=== PATIENT | male | born 1990 | race African-American/Black ===

== ENCOUNTER 2018-03-18 10:32 | Emergency (ER) | payer OTHER ==
[2018-03-18 10:39] VITALS: BP 144/80
[2018-03-18] MEDS ORDERED: KETOROLAC TROMETHAMINE 60 MG/2 ML SDV IM ONE (11:04)
[2018-03-18] MEDS ORDERED: CYCLOBENZAPRINE HCL 10 MG TABLET PO ONE (11:04)
--- NOTE | 2018-03-18 11:11 | ER Document Report ---
HPI - HPI Patient complains to provider of: Left back pain Pain Level: 4 Context: Patient is a 28-year-old male presented to the emergency department complaining of lower back pain. 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 States this morning he noticed more pain in his left lower back and took his son's hydrocodone to help with the pain. Patient states last time he was to the emergency room he was given an IM injection and a muscle relaxer which helped him a lot. Patient is requesting the same at this time. Patient is denying any dysuria, urinary retention, loss of bowel or bladder, numbness or tingling in any extremity. Patient's denying any new injuries to the area states he just does a lot of lifting and twisting with his job. Past medical history: Back pain Medications: None Allergies: No Surgical history: None Patient denies cigarette smoking, illicit drug use, EtOH use. - CONSTITUTIONAL Constitutional: DENIES: Fever, Chills - EENT EENT: DENIES: Sore Throat, Ear Pain, Eye problems - NEURO Neurology: DENIES: Headache, Weakness, Vision blurred, Dizzinesss / Vertigo - CARDIOVASCULAR Cardiovascular: DENIES: Chest pain - RESPIRATORY Respiratory: DENIES: Trouble Breathing, Coughing - GASTROINTESTINAL Gastrointestinal: DENIES: Abdominal Pain, Black / Bloody Stools - URINARY Urinary: DENIES: Dysuria, Urgency, Frequency - MUSCULOSKELETAL Musculoskeletal: DENIES: Extremity pain Past Medical History - General Information source: Patient - Social History Smoking Status: Never Smoker Chew tobacco use (# tins/day): No Frequency of alcohol use: None Drug Abuse: None Lives with: Family Family History: Reviewed & Not Pertinent Patient has suicidal ideation: No Patient has homicidal ideation: No Renal/ Medical History: Denies: Hx Peritoneal Dialysis - Immunizations Immunizations up to date: Yes Hx Diphtheria, Pertussis, Tetanus Vaccination: Yes Vertical Provider Document - CONSTITUTIONAL Agree With Documented VS: Yes Notes: GENERAL: Alert, interacts well. No acute distress. HEAD: Normocephalic, atraumatic. EYES: Pupils equal, round, and reactive to light. Extraocular movements intact. ENT: Oral mucosa moist, tongue midline. NECK: Full range of motion. Supple. Trachea midline. LUNGS: Clear to auscultation bilaterally, no wheezes, rales, or rhonchi. No respiratory distress. HEART: Regular rate and rhythm. No murmur ABDOMEN: Soft, non-tender. Non-distended. Bowel sounds present in all 4 quadrants. EXTREMITIES: Moves all 4 extremities spontaneously. No edema, normal radial and dorsalis pedis pulses bilaterally. No cyanosis. 5/5 strength all 4 extremities. BACK: no cervical, thoracic, lumbar midline tenderness. No saddle anesthesia, normal distal neurovascular exam. Tenderness left lumbar paraspinal. Denies pain moving into his buttocks or lower legs. NEUROLOGICAL: Alert and oriented x3. Normal speech. cranial nerves II through XII grossly intact PSYCH: Normal affect, normal mood. SKIN: Warm, dry, normal turgor. No rashes or lesions noted. - INFECTION CONTROL TRAVEL OUTSIDE OF THE [place] IN LAST 30 DAYS: No Course - Re-evaluation Re-evalutation: 03/18/18 11:08 Treated in the emergency room with Toradol, Flexeril, Lidoderm patch. Patient states pain is much improved. Will discharge home with same. Return precautions discussed. Patient continues without numbness or tingling in any extremity, urinary retention, loss of bowel or bladder. - Vital Signs Vital signs: Temp Pulse Resp BP Pulse Ox 97.6 F 56 L 18 144/80 H 100 03/18/18 10:37 03/18/18 10:37 03/18/18 10:37 03/18/18 10:37 03/18/18 10:37 Discharge - Discharge Clinical Impression: Back pain Qualifiers: Back pain location: low back pain Chronicity: chronic Back pain laterality: left Sciatica presence: without sciatica Qualified Code(s): M54.5 - Low back pain; G89.29 - Other chronic pain; G89.29 - Other chronic pain Condition: Stable Disposition: HOME, SELF-CARE Instructions: Warm Packs ([facility]), Low Back Pain ([facility]), Muscle Strain ([facility]), Pain Medication Injection ([facility]) Additional Instructions: As we discussed you have been seen and treated in the emergency room for lower back pain. Please take medications as prescribed. The Lidoderm patch we placed on your back today can be bought [id number]. Even with insurance it is a very expensive prescription to fill. Please make an appointment with your primary care provider in the next 24-48 hours. Please return to the emergency room should you develop numbness or tingling in any extremity, loss of bowel or bladder, urinary retention or any other concerning symptoms. Prescriptions: Ketorolac Tromethamine [Toradol 10 mg Tablet] 10 mg PO Q8HP PRN #24 tablet PRN Reason: Cyclobenzaprine HCl [Flexeril 10 mg Tablet] 10 mg PO TIDP PRN #15 tab PRN Reason:
[2018-03-18] MEDS ORDERED: LIDOCAINE 5% (700 MG) TRANSDERMAL ADH..PATCH TP ONE (11:12)
== END 2018-03-18 11:41 | disposition home or self-care (01) ==
LOC: ER 10:32
DX: G89.29 Other chronic pain (principal); M54.5 Low back pain
CPT/HCPCS: 99283; 96372; J1885

== ENCOUNTER 2018-04-10 20:11 | Emergency (ER) | payer OTHER ==
[2018-04-10 20:18] VITALS: BP 165/103
[2018-04-10] MEDS ORDERED: KETOROLAC TROMETHAMINE 60 MG/2 ML SDV IM ONE (21:59)
--- NOTE | 2018-04-10 22:01 | ER Document Report ---
HPI - HPI Time Seen by Provider: 04/10/18 21:41 Pain Level: 5 Context: Patient is a 28-year-old male that comes to the emergency department for chief complaint of lower back pain that started this morning. He states for the past 2 days he has been working hard at work, lifting a lot of boxes, bending over frequently. He denies any particular instance of impact or injury. He denies numbness, incontinence, fever, history of IV drug abuse. He states he has had frequent lower back pain. He states that last time which was a month ago he was seen, treated with a shot of medications which resolved his symptoms. He denies any daily medications or medical history otherwise. Past Medical History - General Information source: Patient - Social History Smoking Status: Never Smoker Chew tobacco use (# tins/day): No Frequency of alcohol use: None Drug Abuse: None Lives with: Family Family History: Reviewed & Not Pertinent Patient has suicidal ideation: No Patient has homicidal ideation: No Renal/ Medical History: Denies: Hx Peritoneal Dialysis Surgical Hx: Negative - Immunizations Immunizations up to date: Yes Hx Diphtheria, Pertussis, Tetanus Vaccination: Yes Vertical Provider Document - CONSTITUTIONAL General Appearance: WD/WN, No Apparent Distress, Thin - INFECTION CONTROL TRAVEL OUTSIDE OF THE [place] IN LAST 30 DAYS: No - HEENT HEENT: Atraumatic, Normocephalic - NECK Neck: Normal Inspection - RESPIRATORY Respiratory: Breath Sounds Normal, No Respiratory Distress - CARDIOVASCULAR Cardiovascular: Regular Rate, Regular Rhythm - GI/ABDOMEN Gastrointestinal: Abdomen Soft, Abdomen Non-Tender - BACK Back: negative: Normal Inspection - Tenderness over the left paralumbar musculature. No midline tenderness, no saddle anesthesia, no signs of trauma. Normal upper and lower extremity range of motion, normal strength, normal distal neurovascular exam. - MUSCULOSKELETAL/EXTREMETIES Musculoskeletal/Extremeties: MAEW, FROM, Non-Tender - NEURO Level of Consciousness: Awake, Alert, Appropriate - DERM Integumentary: Warm, Dry, No Rash Course - Re-evaluation Re-evalutation: There is point tenderness over the left lateral lumbar musculature, negative straight leg raise, negative axial loading, no midline tenderness, no fever, patient ambulates without difficulty. Low suspicion of spinal cord compression , cauda equina, epidural abscess. Treating symptomatically, provide with work- release, discussed follow-up and return precautions. Patient states understanding and agreement. - Vital Signs Vital signs: Temp Pulse Resp BP Pulse Ox 98.0 F 62 16 165/103 H 100 04/10/18 20:15 04/10/18 20:15 04/10/18 20:15 04/10/18 20:15 04/10/18 20:15 Discharge - Discharge Clinical Impression: Lower back pain Qualifiers: Chronicity: acute Back pain laterality: left Sciatica presence: without sciatica Qualified Code(s): M54.5 - Low back pain Condition: Stable Disposition: HOME, SELF-CARE Additional Instructions: Your examination is most consistent with muscular strain and spasm. No additional concerning findings noted at this time. Take prescribed medications, apply heat to your lower back, stay hydrated, rest. Avoid lifting/twisting until symptoms resolve. Follow-up with primary care. Return for any concerning symptoms including severe pain, fever, numbness, inability to urinate, incontinence, or any other concerning symptoms. Prescriptions: Methocarbamol [Robaxin 750 mg Tablet] 750 mg PO Q6 #20 tablet Naproxen 500 mg PO BID PRN #20 tablet PRN Reason: Forms: Return to Work, Elevated Blood Pressure Referrals: [facility] [Primary Care Provider] - Follow up as needed
== END 2018-04-10 22:28 | disposition home or self-care (01) ==
LOC: ER 20:11
DX: M54.5 Low back pain (principal)
CPT/HCPCS: 99283; 96372; J1885

== ENCOUNTER 2018-06-06 10:37 | Emergency (ER) | payer OTHER ==
[2018-06-06] MEDS ORDERED: KETOROLAC TROMETHAMINE INJ/PF 30 MG/1 ML SDV IV ONE (11:09)
[2018-06-06] MEDS ORDERED: ONDANSETRON 4 MG TAB.RAPDIS PO ONE (11:10)
--- NOTE | 2018-06-06 11:16 | ER Document Report ---
ED Medical Screen (RME) - General Chief Complaint: Abdominal Pain Stated Complaint: ABDOMINAL PAIN Time Seen by Provider: 06/06/18 11:02 Primary Care Provider: SHADI ZEPEDA [Primary Care Provider] - Follow up as needed Information source: Patient Notes: 28-year-old male presents emergency department with complaints of lower abdominal / suprapubic pain that started last night. He describes it as a pressure/stabbing sensation. No radiation. No alleviating or exacerbating factors. No testicular pain. No dysuria, hematuria, penile discharge. No trauma or injury. Patient is having some nausea but denies any vomiting. I have greeted and performed a rapid initial assessment of this patient. A comprehensive ED assessment and evaluation of the patient, analysis of test results and completion of the medical decision making process will be conducted by additional ED providers. PHYSICAL EXAMINATION: GENERAL: Patient in pain HEAD: Atraumatic, normocephalic. EYES: Pupils equal round extraocular movements intact, conjunctiva are normal. ENT: Nares patent NECK: Normal range of motion LUNGS: No respiratory distress Musculoskeletal: Normal range of motion NEUROLOGICAL: Normal speech, normal gait. PSYCH: Normal mood, normal affect. SKIN: Warm, Dry, normal turgor, no rashes or lesions noted. TRAVEL OUTSIDE OF THE [place] IN LAST 30 DAYS: No - Related Data Allergies/Adverse Reactions: No Known Allergies Allergy (Verified 06/06/18 10:45) Past Medical History Renal/ Medical History: Denies: Hx Peritoneal Dialysis - Immunizations Immunizations up to date: Yes Hx Diphtheria, Pertussis, Tetanus Vaccination: Yes Physical Exam - Vital signs Vitals: Temp Pulse Resp BP Pulse Ox 98.6 F 61 20 172/109 H 100 06/06/18 11:06/06/18 11:06/06/18 11:06/06/18 11:06/06/18 11:00 Course - Vital Signs Vital signs: Temp Pulse Resp BP Pulse Ox 98.6 F 61 20 172/109 H 100 06/06/18 11:00 06/06/18 11:06/06/18 11:06/06/18 11:00 06/06/18 11:00 Doctor's Discharge - Discharge Referrals: DUANE,SHADI [Primary Care Provider] - Follow up as needed
[2018-06-06 11:48] LABS: APPEARANCE,URINE SLIGHTLY-CLOUDY; BILIRUBIN,URINE NEGATIVE (NEGATIVE); COLOR,URINE STRAW; GLUCOSE, URINE NEGATIVE (NEGATIVE); KETONES,URINE NEGATIVE (NEGATIVE); LEUKOCYTE ESTERASE,URINE NEGATIVE (NEGATIVE); NITRITE,URINE NEGATIVE (NEGATIVE); PROTEIN,URINE NEGATIVE (NEGATIVE); URINE SPECIFIC GRAVITY 1.014; UROBILINOGEN,URINE NEGATIVE mg/dL (<2.0)
[2018-06-06 11:48] LABS: ABSOLUTE LYMPHOCYTES (AUTO) 1.1 10^3/uL (0.5-4.7); ABSOLUTE MONOCYTES (AUTO) 0.5 10^3/uL (0.1-1.4); ABSOLUTE NEUT (AUTO) 5.7 10^3/uL (1.7-8.2); BASOPHILS % (AUTO) 0.2 % (0-2); EOSINOPHILS % (AUTO) 0.1 % (0-6); HEMATOCRIT 45.7 % (37.9-51.0); HEMOGLOBIN 15.8 g/dL (13.5-17.0); LYMPHOCYTES % (AUTO) 15.4 % (13-45); MEAN CORPUSCULAR HEMOGLOBIN 32.6 pg (27.0-33.4); MEAN CORPUSCULAR HGB CONC 34.5 g/dL (32.0-36.0); MEAN CORPUSCULAR VOLUME 95 fl (80-97); PLATELET COUNT 297 10^3/uL (150-450); RED BLOOD COUNT 4.84 10^6/uL (4.35-5.55); SEGMENTED NEUTROPHILS % (AUTO) 77.3 % (42-78); TOTAL CELLS COUNTED % (AUTO) 100 %; WHITE BLOOD COUNT 7.4 10^3/uL (4.0-10.5)
--- NOTE | 2018-06-06 11:54 | ER Document Report ---
ED GI/ - General Chief Complaint: Abdominal Pain Stated Complaint: ABDOMINAL PAIN Time Seen by Provider: 06/06/18 11:02 Primary Care Provider: ERNESTINA BARNHART MD [NO LOCAL MD] - Follow up as needed [facility] [Primary Care [facility]] - Follow up as needed TRAVEL OUTSIDE OF THE [place] IN LAST 30 DAYS: No - HPI Patient complains to provider of: Abdominal pain Onset: Yesterday Timing/Duration: Gradual, Persistent Quality of pain: Fullness, Pressure, Sharp, Stabbing Severity at maximum: Severe Severity in ED: Severe Pain Level: 5 Location: Suprapubic, Pelvis Associated symptoms: Nausea Notes: 06/06/18 11:52 Patient is a 28-year-old male presenting to the emergency room complaining of lower abdominal pain/pressure, started yesterday evening, states he was able to sleep through the night but when he woke up the pain started immediately, he reports associated nausea, denies diarrhea or vomiting, no fever, no dysuria or hematuria, he denies having a bowel movement today, he denies pain in his penis or testicles, no penile discharge, denies a history of similar symptoms previously - Related Data Allergies/Adverse Reactions: No Known Allergies Allergy (Verified 06/06/18 10:45) Past Medical History - General Information source: Patient - Social History Smoking Status: Unknown if Ever Smoked Family History: Reviewed & Not Pertinent Patient has suicidal ideation: No Patient has homicidal ideation: No Renal/ Medical History: Denies: Hx Peritoneal Dialysis - Immunizations Immunizations up to date: Yes Hx Diphtheria, Pertussis, Tetanus Vaccination: Yes Review of Systems - Review of Systems Constitutional: No symptoms reported EENT: No symptoms reported Cardiovascular: No symptoms reported Respiratory: No symptoms reported Gastrointestinal: See HPI Genitourinary: See HPI Male Genitourinary: No symptoms reported Musculoskeletal: No symptoms reported Skin: No symptoms reported Hematologic/Lymphatic: No symptoms reported Neurological/Psychological: No symptoms reported -: Yes All other systems reviewed and negative Physical Exam - Vital signs Vitals: Temp Pulse Resp BP Pulse Ox 98.6 F 61 20 172/109 H 100 06/06/18 11:00 06/06/18 11:00 06/06/18 11:00 06/06/18 11:00 06/06/18 11:00 Interpretation: Normal - General General appearance: Appears well, Alert - HEENT Head: Normocephalic, Atraumatic Eyes: Normal Pupils: PERRL - Respiratory Respiratory status: No respiratory distress Chest status: Nontender Breath sounds: Normal Chest palpation: Normal - Cardiovascular Rhythm: Regular Heart sounds: Normal auscultation Murmur: No - Abdominal Inspection: Normal Distension: No distension Bowel sounds: Normal Tenderness: Tender - Across the lower abdomen and suprapubic area Organomegaly: No organomegaly - Back Back: Normal, Nontender - Extremities General upper extremity: Normal inspection, Nontender, Normal color, Normal ROM, Normal temperature General lower extremity: Normal inspection, Nontender, Normal color, Normal ROM, Normal temperature, Normal weight bearing. No: Harrison's sign - Neurological Neuro grossly intact: Yes Cognition: Normal Orientation: AAOx4 [place] Coma Scale Eye Opening: Spontaneous [place] Coma Scale Verbal: Oriented [place] Coma Scale Motor: Obeys Commands [place] Coma Scale Total: 15 Speech: Normal Motor strength normal: LUE, RUE, LLE, RLE Sensory: Normal - Psychological Associated symptoms: Normal affect, Normal mood - Skin Skin Temperature: Warm Skin Moisture: Dry Skin Color: Normal Course - Re-evaluation Re-evalutation: 06/06/18 15:34 Lab and imaging findings discussed with patient at bedside which are consistent with a 6 mm kidney stone in his right UVJ, patient was advised that the side stone may or may not pass on its own with the assistance of medications, he was advised to follow-up with his primary care provider and a urologist, return if symptoms worsen, patient provided with multiple prescriptions for symptomatic relief, patient acknowledges understanding and agreement with this plan - Vital Signs Vital signs: Temp Pulse Resp BP Pulse Ox 97.9 F 55 L 18 151/91 H 100 06/06/18 13:55 06/06/18 13:55 06/06/18 13:55 06/06/18 13:55 06/06/18 13:55 - Laboratory Result Diagrams: 06/06/18 11:27 06/06/18 12:03 Laboratory results interpreted by me: 06/06/18 10:58 Urine Blood MODERATE H - Diagnostic Test Radiology reviewed: Image reviewed, Reports reviewed Discharge - Discharge Clinical Impression: Kidney stone on left side Condition: Stable Disposition: HOME, SELF-CARE Instructions: Kidney Stone ([facility]) Additional Instructions: Follow up with your primary care provider and a urologist in one to 2 days. Return to the emergency room immediately if symptoms worsen or any additional concerns. Prescriptions: Ondansetron [Zofran Odt 4 mg Tablet] 1 - 2 tab PO Q4H #10 tab.rapdis Oxycodone HCl/Acetaminophen [Percocet 5-325 mg Tablet] 1 - 2 tab PO ASDIR PRN #20 tablet PRN Reason: Tamsulosin HCl [Flomax 0.4 mg Cap.sr] 0.4 mg PO DAILY #7 cap.sr.24h Forms: Return to Work Referrals: [facility] [Primary [facility]] - Follow up as needed ERNESTINA BARNHART MD [NO LOCAL MD] - Follow up as needed
[2018-06-06 12:38] LABS: ALANINE AMINOTRANSFERASE 29 U/L (21-72); ALBUMIN 4.6 g/dL (3.5-5.0); ALKALINE PHOSPHATASE 69 U/L (38-126); ANION GAP 9 (5-19); ASPARTATE AMINO TRANSFERASE 32 U/L (17-59); BILIRUBIN,DIRECT 0.3 mg/dL (0.0-0.4); BILIRUBIN,TOTAL 0.7 mg/dL (0.2-1.3); BLOOD UREA NITROGEN 16 mg/dL (7-20); CALCIUM 9.5 mg/dL (8.4-10.2); CARBON DIOXIDE 26 mmol/L (22-30); CHLORIDE 107 mmol/L (98-107); GLUCOSE 97 mg/dL (75-110); SODIUM 141.8 mmol/L (137-145); TOTAL PROTEIN 7.4 g/dL (6.3-8.2)
--- NOTE | 2018-06-06 12:56 | RADIOLOGY REPORT (SQ) ---
EXAM DESCRIPTION: CT LTD RENAL STONE PROTOCOL ON COMPLETED DATE/TIME: 06/06/2018 12:43 pm REASON FOR STUDY: flank pain COMPARISON: None. TECHNIQUE: CT scan of the abdomen and pelvis performed without intravenous or oral contrast. Images reviewed with lung, soft tissue, and bone windows. Reconstructed coronal and sagittal MPR images revi ewed. All images stored on PACS. All CT scanners at this facility use dose modulation, iterative reconstruction, and/or weight based d osing when appropriate to reduce radiation dose to as low as reasonably achievable (ALARA). [facility]: Dose Right [facility]: CareDose [facility]: Dose Right [facility]: Teradose 4D [facility]: Smart ArriveBefore RADIATION DOSE: CT Rad equipment meets quality standard of care and radiation dose reduction techniq ues were employed. CTDIvol: 8.1 mGy. DLP: 474 mGy-cm.mGy. LIMITATIONS: None. FINDINGS: LOWER CHEST: No significant findings. No nodules or infiltrates. NON-CONTRASTED LIVER, SPLEEN, ADRENALS: Evaluation limited by lack of IV contrast. No identified sign ificant masses. PANCREAS: No masses. No peripancreatic inflammatory changes. GALLBLADDER: No identified stones by CT criteria. No inflammatory changes to suggest cholecystitis. RIGHT KIDNEY AND URETER: No suspicious masses. Assessment limited by lack of IV contrast. There are couple of tiny intrarenal calculi. No hydronephrosis or hydroureter. LEFT KIDNEY AND URETER: No suspicious masses. Assessment limited by lack of IV contrast. There appe ars to be a 6 mm distal ureteral calculus. A couple small nonobstructing intrarenal calculi are pres ent. Mild hydronephrosis and hydroureter. AORTA AND RETROPERITONEUM: No aneurysm. No retroperitoneal masses or adenopathy. BOWEL AND PERITONEAL CAVITY: No obvious masses or inflammatory changes. No free fluid. APPENDIX: Not identified. PELVIS, BLADDER, AND ABDOMINAL WALL:No abnormal masses. No free fluid. Bladder normal. BONES: No significant findings. OTHER: No other significant finding. IMPRESSION: There is left hydronephrosis secondary to a 6 mm distal ureteral calculus. Tiny nonobst ructing intrarenal calculi are present bilaterally. COMMENT: Quality ID # [id number]: Final reports with documentation of one or more dose reduction techniques (e.g., Automated exposure control, adjustment of the mA and/or kV according to patient size, use of iterative reconstruction technique) TECHNICAL DOCUMENTATION: JOB ID: [id number] [employer]- All Rights Reserved Reading location - IP/workstation name: [email or web address]
[2018-06-06] MEDS ORDERED: HYDROMORPHONE HCL INJ/PF 2 MG/ML AMPULE IV ONE (13:03)
[2018-06-06] MEDS ORDERED: ONDANSETRON HCL INJ/PF 4 MG/2 ML SDV IV ONE (13:04)
[2018-06-06] MEDS ORDERED: TAMSULOSIN HCL 0.4 MG CAP.SR.24H PO ONE (13:04)
[2018-06-06 13:55] VITALS: BP 151/91
== END 2018-06-06 14:02 | disposition home or self-care (01) ==
LOC: ER 10:37
DX: N13.2 Hydronephrosis with renal and ureteral calculous obstruction (principal); R10.30 Lower abdominal pain, unspecified; R11.0 Nausea
CPT/HCPCS: 99284; 96374; 96375; 36415; 85025; 80053; 81001; 76380; S0119; J1885; J1170; J2405

== ENCOUNTER 2018-10-29 02:22 | Emergency (ER) | payer OTHER ==
[2018-10-29] MEDS ORDERED: MORPHINE SULFATE 10 MG/ML INJ IV PRN (02:36)
[2018-10-29] MEDS ORDERED: KETOROLAC TROMETHAMINE INJ/PF 30 MG/1 ML SDV IV ONE (02:36)
[2018-10-29] MEDS ORDERED: ONDANSETRON HCL INJ/PF 4 MG/2 ML SDV IV ONE (02:37)
[2018-10-29] MEDS ORDERED: NORMAL SALINE 1000 ML 1,000 ML IV ONE (02:37)
[2018-10-29 03:42] LABS: ANION GAP 10 (5-19); BLOOD UREA NITROGEN 16 mg/dL (7-20); CALCIUM 9.8 mg/dL (8.4-10.2); CARBON DIOXIDE 25 mmol/L (22-30); CHLORIDE 106 mmol/L (98-107); GLUCOSE 100 mg/dL (75-110); POTASSIUM 4.1 mmol/L (3.6-5.0); SODIUM 140.6 mmol/L (137-145)
[2018-10-29] MEDS ORDERED: ONDANSETRON ODT 4 MG TAB (6 TAB/ER DISP) PO PRN (04:07)
[2018-10-29] MEDS ORDERED: HYDROCODONE/ACETAMINOPHEN 5-325 MG (6 TAB/ER DISP) PO PRN (04:07)
[2018-10-29] MEDS ORDERED: TAMSULOSIN HCL 0.4 MG CAP.SR.24H PO ONE (04:07)
--- NOTE | 2018-10-29 04:11 | ER Document Report ---
ED General - General Chief Complaint: Possible Kidney Stone Stated Complaint: FLANK PAIN Time Seen by Provider: 10/29/18 02:36 Primary Care Provider: SHADI ZEPEDA [Primary Care Provider] - Follow up as needed Notes: Patient is a 28-year-old male without chronic medical problems, does have a history of kidney stones although has never required surgical intervention who presents with approximately 30 minutes of severe pain to his right flank. Patient describes it as a severe, throbbing, constant pain radiating down to his lower abdomen and right testicle. States this feels identical to prior episodes of kidney stones that he has had in the past. Nothing seems to improve or worsen the pain. Notes associated nausea and vomiting. No fever or constitutional symptoms. Has not seen his primary care physician regarding today's concerns. TRAVEL OUTSIDE OF THE [place] IN LAST 30 DAYS: No - Related Data Allergies/Adverse Reactions: No Known Allergies Allergy (Verified 06/06/18 10:45) Past Medical History - General Information source: Patient - Social History Smoking Status: Never Smoker Frequency of alcohol use: None Drug Abuse: None Lives with: Spouse/Significant other Family History: Reviewed & Not Pertinent Patient has suicidal ideation: No Patient has homicidal ideation: No Renal/ Medical History: Reports: Hx Kidney Stones. Denies: Hx Peritoneal Tanisha lysis - Immunizations Immunizations up to date: Yes Hx Diphtheria, Pertussis, Tetanus Vaccination: Yes Review of Systems - Review of Systems Notes: Constitutional: Negative for fever. HENT: Negative for sore throat. Eyes: Negative for visual changes. Cardiovascular: Negative for chest pain. Respiratory: Negative for shortness of breath. Gastrointestinal: Positive for right flank pain, nausea and vomiting Genitourinary: Negative for dysuria. Musculoskeletal: Negative for back pain. Skin: Negative for rash. Neurological: Negative for headaches, weakness or numbness. 10 point ROS negative except as marked above and in HPI. Physical Exam - Vital signs Vitals: Temp Pulse Resp BP Pulse Ox 97.8 F 81 20 136/95 H 100 10/29/18 02:28 10/29/18 02:28 10/29/18 02:28 10/29/18 02:28 10/29/18 02:28 Interpretation: Normal Notes: PHYSICAL EXAMINATION: GENERAL: Appears uncomfortable but in no acute distress HEAD: Atraumatic, normocephalic. EYES: Pupils equal round and reactive to light, extraocular movements intact, sclera anicteric, conjunctiva are normal. ENT: nares patent, oropharynx clear without exudates. Moist mucous membranes. NECK: Normal range of motion, supple without lymphadenopathy LUNGS: Breath sounds clear to auscultation bilaterally and equal. No wheezes rales or rhonchi. HEART: Regular rate and rhythm without murmurs ABDOMEN: Soft, mild right CVA tenderness to palpation, nontender, normoactive bowel sounds. No guarding, no rebound. No masses appreciated. EXTREMITIES: Normal range of motion, no pitting or edema. No cyanosis. NEUROLOGICAL: No focal neurological deficits. Moves all extremities spontaneously and on command. PSYCH: Normal mood, normal affect. SKIN: Warm, Dry, normal turgor, no rashes or lesions noted. Course - Re-evaluation Re-evalutation: 10/29/18 04:10 Presents with findings consistent with acute nephrolithiasis. CT deferred per ACEP guidelines. laboratory otherwise unremarkable. Pain was able to be controlled here in the emergency department. Patient is tolerating oral intake. Clinical history is not consistent with an acute abdominal aneurysm or dissection, [place], or pulmonary embolus. Urinalysis does not show findings consistent with an infected stone. Vitals have remained within normal limits. Patient will be discharged with recommendations to follow-up with urology, pain medications, and return precautions. They are in agreement with this plan and verbalized indications return to emergency department. - Vital Signs Vital signs: Temp Pulse Resp BP Pulse Ox 97.8 F 81 20 136/95 H 100 10/29/18 02:28 10/29/18 02:28 10/29/18 02:28 10/29/18 02:28 10/29/18 02:28 - Laboratory Result Diagrams: 10/29/18 03:05 Discharge - Discharge Clinical Impression: Right kidney stone, Right flank pain Nausea and vomiting Qualifiers: Vomiting type: unspecified Vomiting Intractability: non-intractable Qualified Code(s): R11.2 - Nausea with vomiting, unspecified Condition: Good Disposition: HOME, SELF-CARE Additional Instructions: Your symptoms should improve over the course of the next one week. If you continue to have pain for greater than one week or your pain is not controlled with the pain medications that you have been sent home with you need to return to the emergency department. Please also return if you develop fever, persistent vomiting, or any other symptoms that are concerning to you. You should take ibuprofen 600 mg every 6 hours and use the oral [place] as prescribed only for pain not controlled by ibuprofen. You are also been sent home with a medication called Flomax to help pass the stone. You've been given Zofran to assist with nausea. Please follow-up with urology in the next 2-3 days. Prescriptions: Tamsulosin HCl [Flomax 0.4 mg Cap.sr] 0.4 mg PO DAILY #7 cap.sr.24h Referrals: [facility] [Primary Care Provider] - Follow up in 3-5 days
[2018-10-29 05:03] LABS: APPEARANCE,URINE CLOUDY; BILIRUBIN,URINE NEGATIVE (NEGATIVE); COLOR,URINE YELLOW; GLUCOSE, URINE NEGATIVE (NEGATIVE); KETONES,URINE NEGATIVE (NEGATIVE); LEUKOCYTE ESTERASE,URINE NEGATIVE (NEGATIVE); NITRITE,URINE NEGATIVE (NEGATIVE); PROTEIN,URINE 30 mg/dL (NEGATIVE); UROBILINOGEN,URINE NEGATIVE mg/dL (<2.0)
[2018-10-29 05:20] VITALS: BP 135/69
== END 2018-10-29 05:20 | disposition home or self-care (01) ==
LOC: ER 02:22
DX: N20.0 Calculus of kidney (principal); R10.9 Unspecified abdominal pain; N50.811 Right testicular pain; R11.2 Nausea with vomiting, unspecified
CPT/HCPCS: 99284; 96361; 96374; 96375; 36415; 80048; 81001; J1885; J2270; J2405; J7030

== ENCOUNTER 2018-10-29 05:52 | Emergency (ER) | payer OTHER ==
[2018-10-29] MEDS ORDERED: KETOROLAC TROMETHAMINE INJ/PF 30 MG/1 ML SDV IV ONE (06:33)
[2018-10-29] MEDS ORDERED: MORPHINE SULFATE 10 MG/ML INJ IV ONE (06:33)
[2018-10-29] MEDS ORDERED: NORMAL SALINE 1000 ML 1,000 ML IV ONE ×2 (06:33→07:44)
[2018-10-29] MEDS ORDERED: ONDANSETRON HCL INJ/PF 4 MG/2 ML SDV IV ONE (06:33)
[2018-10-29 07:01] LABS: ABSOLUTE LYMPHOCYTES (AUTO) 1.7 10^3/uL (0.5-4.7); ABSOLUTE MONOCYTES (AUTO) 0.3 10^3/uL (0.1-1.4); ABSOLUTE NEUT (AUTO) 3.5 10^3/uL (1.7-8.2); BASOPHILS % (AUTO) 0.3 % (0-2); EOSINOPHILS % (AUTO) 0.5 % (0-6); HEMATOCRIT 43.5 % (37.9-51.0); HEMOGLOBIN 14.9 g/dL (13.5-17.0); LYMPHOCYTES % (AUTO) 30.1 % (13-45); MEAN CORPUSCULAR HEMOGLOBIN 32.6 pg (27.0-33.4); MEAN CORPUSCULAR HGB CONC 34.3 g/dL (32.0-36.0); MEAN CORPUSCULAR VOLUME 95 fl (80-97); MONOCYTES % (AUTO) 5.9 % (3-13); PLATELET COUNT 251 10^3/uL (150-450); RED BLOOD COUNT 4.58 10^6/uL (4.35-5.55); RED CELL DISTRIBUTION WIDTH 14.2 % (11.5-14.0); SEGMENTED NEUTROPHILS % (AUTO) 63.2 % (42-78); TOTAL CELLS COUNTED % (AUTO) 100 %; WHITE BLOOD COUNT 5.6 10^3/uL (4.0-10.5)
[2018-10-29 07:25] LABS: APPEARANCE,URINE CLOUDY; BILIRUBIN,URINE NEGATIVE (NEGATIVE); COLOR,URINE YELLOW; GLUCOSE, URINE NEGATIVE (NEGATIVE); KETONES,URINE NEGATIVE (NEGATIVE); LEUKOCYTE ESTERASE,URINE NEGATIVE (NEGATIVE); NITRITE,URINE NEGATIVE (NEGATIVE); PROTEIN,URINE 30 mg/dL (NEGATIVE); URINE SPECIFIC GRAVITY 1.025; UROBILINOGEN,URINE NEGATIVE mg/dL (<2.0)
[2018-10-29 07:59] LABS: ALANINE AMINOTRANSFERASE 31 U/L (21-72); ALBUMIN 3.5 g/dL (3.5-5.0); ALKALINE PHOSPHATASE 56 U/L (38-126); ANION GAP 5 (5-19); ASPARTATE AMINO TRANSFERASE 52 U/L (17-59); BILIRUBIN,DIRECT 0.1 mg/dL (0.0-0.4); BILIRUBIN,TOTAL 0.5 mg/dL (0.2-1.3); BLOOD UREA NITROGEN 14 mg/dL (7-20); CALCIUM 8.7 mg/dL (8.4-10.2); CARBON DIOXIDE 26 mmol/L (22-30); CHLORIDE 109 mmol/L (98-107); GLUCOSE 100 mg/dL (75-110); POTASSIUM 4.7 mmol/L (3.6-5.0); SODIUM 139.8 mmol/L (137-145); TOTAL PROTEIN 6.2 g/dL (6.3-8.2)
[2018-10-29 10:04] VITALS: BP 145/70
--- NOTE | 2018-10-29 14:24 | ER Document Report ---
Entered by DENNIS JIM SCRIBE 10/29/18 0634 Acting as scribe for:CORINNE CASILLAS MD ED General - General Chief Complaint: Possible Kidney Stone Stated Complaint: FLANK PAIN Time Seen by Provider: 10/29/18 06:21 Primary Care Provider: [facility] [Provider Group] - Follow up as needed [facility] - Follow up as needed Notes: Patient is a 28 year old male with pertinent history of kidney stones presenting to the emergency department complaining of right sided flank pain. Patient states that he began experiencing pain x2 days ago and it has been constant but bearable. Patient states that he woke up in extreme pain early this morning and he then proceeded to come to the emergency department. Patient was discharged at 05:55 this morning and given IV Toradol and morphine, he states he left feeling fine after that. He then returned to the emergency department shortly after at 06:07 because the pain progressed immensely. TRAVEL OUTSIDE OF THE [place] IN LAST 30 DAYS: No - Related Data Allergies/Adverse Reactions: No Known Allergies Allergy (Verified 10/29/18 06:10) Past Medical History - General Information source: Patient - Social History Smoking Status: Never Smoker Cigarette use (# per day): No Chew tobacco use (# tins/day): No Frequency of alcohol use: None Drug Abuse: None Lives with: Spouse/Significant other Family History: Reviewed & Not Pertinent Patient has suicidal ideation: No Patient has homicidal ideation: No Renal/ Medical History: Reports: Hx Kidney Stones - Immunizations Immunizations up to date: Yes Hx Diphtheria, Pertussis, Tetanus Vaccination: Yes Review of Systems - Review of Systems Constitutional: No symptoms reported EENT: No symptoms reported Cardiovascular: No symptoms reported Respiratory: No symptoms reported Gastrointestinal: No symptoms reported Genitourinary: Flank pain - Right sided Male Genitourinary: No symptoms reported Musculoskeletal: No symptoms reported Skin: No symptoms reported Hematologic/Lymphatic: No symptoms reported Neurological/Psychological: No symptoms reported -: Yes All other systems reviewed and negative Physical Exam - Vital signs Vitals: Temp Pulse Resp BP Pulse Ox 98 F 59 L 16 152/94 H 100 10/29/18 05:53 10/29/18 05:53 10/29/18 05:53 10/29/18 05:53 10/29/18 05:53 - Notes Notes: Physical Exam: General: Alert, appears well. HEENT: Normocephalic. Atraumatic. PERRL. Extraocular movements intact. Oropharynx clear. Neck: Supple. Non-tender. Respiratory: No respiratory distress. Clear and equal breath sounds bilaterally. Cardiovascular: Regular rate and rhythm. Abdominal: Right lower quadrant tenderness to palpation. Percussion on the left side of abdomen causes right sided abdominal pain. No distension. Normal Bowel Sounds. Back: Non-tender. No deformity or step off. Extremities: Moves all four extremities. Upper extremities: Normal inspection. Normal ROM. Lower extremities: Normal inspection. No edema. Normal ROM. Neurological: Normal cognition. AAOx4. Normal speech. Psychological: Normal affect. Normal Mood. Skin: Warm. Dry. Normal color. Course - Re-evaluation Re-evalutation: 10/29/18 09:19 Patient is had 2 L of IV fluids at this point. He remains resting comfortably and believes that he will be okay at home taking pain medications and nausea medicine. - Vital Signs Vital signs: Temp Pulse Resp BP Pulse Ox 97.5 F 52 L 18 145/70 H 98 10/29/18 09:40 10/29/18 09:40 10/29/18 09:40 10/29/18 09:40 10/29/18 09:40 - Laboratory Result Diagrams: 10/29/18 06:47 10/29/18 07:25 Laboratory results interpreted by me: 10/29/18 10/29/18 10/29/18 06:47 07:00 07:25 RDW 14.2 H Chloride 109 H Total Protein 6.2 L Urine Protein 30 H Urine Blood LARGE H Discharge - Discharge Clinical Impression: Right flank pain Condition: Stable Disposition: HOME, SELF-CARE Additional Instructions: Kidney Stone You are passing a kidney stone. These stones are usually due to increased calcium or uric acid concentrations in your urine. Stones within the kidney itself are not painful. The pain occurs as the stone leaves the kidney to pass down the long tube, called the ureter, leading to the bladder. If the stone is small, it will usually pass by itself. Most patients can pass the stone at home. You will usually receive medications for pain, nausea or vomiting, and sometimes a medication to assist in passing the kidney stone. However, if the pain is very severe or if vomiting prevents you from taking oral pain medications, you may need to return for further treatment. Drink three or four quarts of fluids per day. You will be given pain medication (if needed) and urine strainers. Strain all your urine to see if the stone passes. If your doctor has asked you to bring the stone in for analysis, return with the stone once it has passed. Return if pain or vomiting become severe, if you develop a high fever, if you are unable to pass your urine, or if other unusual symptoms occur. Drink plenty of fluids and strain your urine. Take ibuprofen 600 mg every 6 hours. Take the pain medications as prescribed if needed. Take the nausea medicine as prescribed if needed. Be sure to take the Flomax that was prescribed earlier today at every day. Follow-up with your doctor, or a local urologist if not improving. RETURN TO THE EMERGENCY ROOM IF ANY NEW OR WORSENING SYMPTOMS. Prescriptions: Ondansetron [Zofran Odt 4 mg Tablet] 1 - 2 tab PO Q4H #10 tab.rapdis Oxycodone HCl/Acetaminophen [Percocet 5-325 mg Tablet] 1 tab PO ASDIR PRN #15 tablet PRN Reason: Referrals: [facility] [[facility]] - Follow up as needed [facility] [Provider Group] - Follow up as needed Scribe Attestation: 10/29/18 07:24 I personally performed the services described in the documentation, reviewed and edited the documentation which was dictated to the scribe in my presence, and it accurately records my words and actions. I personally performed the services described in the documentation, reviewed and edited the documentation which was dictated to the scribe in my presence, and it accurately records my words and actions.
== END 2018-10-29 10:04 | disposition home or self-care (01) ==
LOC: ER 05:52
DX: R10.9 Unspecified abdominal pain (principal); R10.813 Right lower quadrant abdominal tenderness; Z87.442 Personal history of urinary calculi
CPT/HCPCS: 99284; 96361; 96374; 96375; 36415; 85025; 81001; J1885; J2270; J2405; J7030

== ENCOUNTER 2019-07-31 21:23 | Emergency (ER) | payer OTHER ==
[2019-07-31] MEDS ORDERED: KETOROLAC TROMETHAMINE INJ/PF 30 MG/1 ML SDV IV ONE (21:35)
[2019-07-31] MEDS ORDERED: ONDANSETRON HCL INJ/PF 4 MG/2 ML SDV IV ONE (21:35)
[2019-07-31] MEDS ORDERED: NORMAL SALINE 1000 ML 1,000 ML IV ONE (21:35)
--- NOTE | 2019-07-31 21:38 | ER Document Report ---
ED Medical Screen (RME) - General Chief Complaint: Urinary Problem Stated Complaint: URINARY PROBLEM Time Seen by Provider: 07/31/19 21:34 Primary Care Provider: SHAD[facility] ZEPEDA [Primary Care Provider] - Follow up as needed Mode of Arrival: Ambulatory Information source: Patient Notes: 29-year-old male presented to ED for complaint of right flank pain. He states is pretty bad right now. He states at times he gets even worse right now is a level 3. He states his last kidney stone was in December. 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 I have greeted and performed a rapid initial assessment of this patient. A comprehensive ED assessment and evaluation of the patient, analysis of test results and completion of medical decision making process will be conducted by an additional ED providers. TRAVEL OUTSIDE OF THE [place] IN LAST 30 DAYS: No - Related Data Allergies/Adverse Reactions: No Known Allergies Allergy (Verified 10/29/18 06:10) Past Medical History Renal/ Medical History: Reports: Hx Kidney Stones. Denies: Hx Peritoneal Dialysis - Immunizations Immunizations up to date: Yes Hx Diphtheria, Pertussis, Tetanus Vaccination: Yes Doctor's Discharge - Discharge Referrals: [facility] [Primary Care Provider] - Follow up as needed
--- NOTE | 2019-07-31 22:14 | ER Document Report ---
ED General - General Chief Complaint: Possible Kidney Stone Stated Complaint: URINARY PROBLEM Time Seen by Provider: 07/31/19 21:34 Primary Care Provider: DEEDEE PABLO MD [NO LOCAL MD] - Follow up as needed KAROL VEGA MD [NO LOCAL MD] - Follow up as needed [facility] [Primary Care Provider] - Follow up as needed Mode of Arrival: Ambulatory Information source: Patient TRAVEL OUTSIDE OF THE [place] IN LAST 30 DAYS: No - HPI Onset: Just prior to arrival Onset/Duration: Sudden Quality of pain: Sharp Severity: Moderate Pain Level: 3 Associated symptoms: Nausea Exacerbated by: Movement Relieved by: Denies Similar symptoms previously: Yes - with prior kidney stones Recently seen / treated by doctor: No Notes: 29 year old male with a history of kidney stones here for sudden onset of right sided flank pain which radiates to his right groin and is associated with nausea. The patient says this feels like prior kidney stones. The patient has never had to have surgery, stents, or lithotripsy. Patient had a CT on 06/06/18 showing bilateral tiny kidney stones and a 6mm distal left ureter stone. The patient denies fevers, chills, sweats, urinary symptoms. - Related Data Allergies/Adverse Reactions: No Known Allergies Allergy (Verified 10/29/18 06:10) Past Medical History - General Information source: Patient - Social History Smoking Status: Never Smoker Family History: Reviewed & Not Pertinent Patient has suicidal ideation: No Patient has homicidal ideation: No Renal/ Medical History: Reports: Hx Kidney Stones. Denies: Hx Peritoneal Dialysis - Immunizations Immunizations up to date: Yes Hx Diphtheria, Pertussis, Tetanus Vaccination: Yes Review of Systems - Review of Systems Constitutional: No symptoms reported EENT: No symptoms reported Cardiovascular: No symptoms reported Respiratory: No symptoms reported Gastrointestinal: Abdominal pain - right sided, Nausea Genitourinary: Flank pain - right sided Male Genitourinary: No symptoms reported Musculoskeletal: No symptoms reported Skin: No symptoms reported Hematologic/Lymphatic: No symptoms reported Neurological/Psychological: No symptoms reported -: Yes All other systems reviewed and negative Physical Exam - Vital signs Vitals: Temp Pulse Resp BP Pulse Ox 97.2 F 61 16 147/94 H 99 07/31/19 21:36 07/31/19 21:36 07/31/19 21:36 07/31/19 21:36 07/31/19 21:36 - Notes Notes: GENERAL: Patient in mild distress well-nourished and in no acute distress. HEAD: Atraumatic, normocephalic. EYES: Pupils equal round and reactive to light, extraocular movements intact, sclera anicteric, conjunctiva are normal. ENT: Nares patent, oropharynx clear without exudates. Moist mucous membranes. NECK: Normal range of motion, supple without lymphadenopathy or JVD. LUNGS: Breath sounds clear to auscultation bilaterally and equal. No wheezes rales or rhonchi. HEART: Regular rate and rhythm without murmurs, rubs or gallops. ABDOMEN: Soft, mild RUQ tenderness, mild right flank tenderness, normoactive bowel sounds. No guarding, no rebound. No masses appreciated. EXTREMITIES: Normal range of motion, no pitting or edema. No clubbing or cyanosis. NEUROLOGICAL: Cranial nerves II through XII grossly intact. Normal speech, normal gait. PSYCH: Normal mood, normal affect. SKIN: Warm, Dry, normal turgor, no rashes or lesions noted. Course - Re-evaluation Re-evalutation: 08/01/19 00:15 The patient either passed a kidney stone or he is passing a kidney stone on the left. He has blood in his urine and he says this feels like the last time he had a kidney stone. US of kidneys shows no hydronephrosis and no visible kidney stones. Patient had a CT scan in May of 2018 which showed a stone on the left which he has since passed and bilateral punctate stones. Patients pain was controlled in the ER with Toradol, Morphine, and Fluids. Patient given a urine strainer and he was told to follow up with a Urologist. Patient given a Vashon take home pack for pain not well controlled with over the counter medications. - Vital Signs Vital signs: Temp Pulse Resp BP Pulse Ox 97.2 F 61 16 147/94 H 99 07/31/19 21:36 07/31/19 21:36 07/31/19 21:36 07/31/19 21:36 07/31/19 21:36 - Laboratory Result Diagrams: 07/31/19 22:02 07/31/19 22:02 Laboratory results interpreted by me: 07/31/19 07/31/19 22:02 23:51 RDW 14.2 H Lymph % (Auto) 46.8 H Urine Blood LARGE H - Diagnostic Test Radiology reviewed: Image reviewed, Reports reviewed Discharge - Discharge Clinical Impression: Kidney calculi Hematuria Qualifiers: Hematuria type: unspecified type Qualified Code(s): R31.9 - Hematuria, unspecified Condition: Stable Disposition: HOME, SELF-CARE Instructions: Kidney Stone ([facility]) Additional Instructions: Drink plenty of water in the days to come. Follow up with a Urologist. Strain your urine and bring any stones found in your urine to a Urologist. Use Tylenol and Motrin for pain. Use Vashon for pain not well controlled. You had an ultrasound in the ER which showed normal kidneys with no sign of an obstructive process. Referrals: [facility] [Primary [facility]] - Follow up as needed DEEDEE PABLO MD [NO LOCAL MD] - Follow up as needed KAROL VEGA MD [NO LOCAL MD] - Follow up as needed
[2019-07-31 22:22] LABS: ABSOLUTE LYMPHOCYTES (AUTO) 2.6 10^3/uL (0.5-4.7); ABSOLUTE MONOCYTES (AUTO) 0.5 10^3/uL (0.1-1.4); ABSOLUTE NEUT (AUTO) 2.4 10^3/uL (1.7-8.2); BASOPHILS % (AUTO) 0.3 % (0-2); EOSINOPHILS % (AUTO) 0.5 % (0-6); HEMOGLOBIN 15.1 g/dL (13.5-17.0); LYMPHOCYTES % (AUTO) 46.8 % (13-45); MEAN CORPUSCULAR HEMOGLOBIN 33.1 pg (27.0-33.4); MEAN CORPUSCULAR HGB CONC 34.5 g/dL (32.0-36.0); MEAN CORPUSCULAR VOLUME 96 fl (80-97); MONOCYTES % (AUTO) 8.2 % (3-13); PLATELET COUNT 268 10^3/uL (150-450); RED BLOOD COUNT 4.58 10^6/uL (4.35-5.55); RED CELL DISTRIBUTION WIDTH 14.2 % (11.5-14.0); SEGMENTED NEUTROPHILS % (AUTO) 44.2 % (42-78); TOTAL CELLS COUNTED % (AUTO) 100 %; WHITE BLOOD COUNT 5.5 10^3/uL (4.0-10.5)
[2019-07-31 22:40] LABS: ALBUMIN 4.1 g/dL (3.5-5.0); ALKALINE PHOSPHATASE 63 U/L (38-126); ANION GAP 8 (5-19); ASPARTATE AMINO TRANSFERASE 32 U/L (17-59); BILIRUBIN,DIRECT 0.2 mg/dL (0.0-0.4); BILIRUBIN,TOTAL 0.4 mg/dL (0.2-1.3); BLOOD UREA NITROGEN 16 mg/dL (7-20); CALCIUM 9.3 mg/dL (8.4-10.2); CARBON DIOXIDE 25 mmol/L (22-30); CHLORIDE 104 mmol/L (98-107); GLUCOSE 81 mg/dL (75-110); POTASSIUM 3.9 mmol/L (3.6-5.0); TOTAL PROTEIN 7.4 g/dL (6.3-8.2)
[2019-07-31] MEDS ORDERED: MORPHINE SULFATE 10 MG/ML INJ IV ONE (23:26)
--- NOTE | 2019-07-31 23:27 | RADIOLOGY REPORT (SQ) ---
Ultrasound renal on 07/31/2019 at 10:26 PM CLINICAL INDICATION: History of kidney stones, right-sided back pain COMPARISON: CT from 06/06/2018 FINDINGS: Multiple sonographic images are obtained throughout the kidneys and bladder, both transverse and sagittal images are obtained. The right kidney measures approximately 11 cm in greatest pole to pole length. Left kidney measures approximately 12 cm in greatest [id number] length. Both kidneys appear normal in size and morphology and without hydronephrosis. No bladder wall thickening or intraluminal filling defect is noted. Right ureteral jet is visualized. IMPRESSION: Unremarkable exam.
[2019-08-01 00:03] LABS: AMORPHOUS SEDIMENT,URINE TRACE /HPF; APPEARANCE,URINE SLIGHTLY-CLOUDY; BILIRUBIN,URINE NEGATIVE (NEGATIVE); COLOR,URINE YELLOW; GLUCOSE, URINE NEGATIVE (NEGATIVE); KETONES,URINE NEGATIVE (NEGATIVE); PROTEIN,URINE NEGATIVE (NEGATIVE); URINE SPECIFIC GRAVITY 1.012; UROBILINOGEN,URINE NEGATIVE mg/dL (<2.0)
[2019-08-01] MEDS ORDERED: HYDROCODONE/ACETAMINOPHEN 5-325 MG (6 TAB/ER DISP) PO PRN (00:14)
[2019-08-01] MEDS ORDERED: METOCLOPRAMIDE HCL INJ/PF 10 MG/2 ML SDV IV ONE (00:47)
[2019-08-01] MEDS ORDERED: ONDANSETRON ODT 4 MG TAB (6 TAB/ER DISP) PO PRN (00:50)
[2019-08-01 01:24] VITALS: BP 145/97
== END 2019-08-01 01:27 | disposition home or self-care (01) ==
LOC: ER 21:23
DX: N20.0 Calculus of kidney (principal); R31.9 Hematuria, unspecified; R11.0 Nausea; R10.9 Unspecified abdominal pain; Z87.442 Personal history of urinary calculi
CPT/HCPCS: 99284; 96361; 96374; 96375; 36415; 85025; 80053; 81001; 76770; J1885; J2765; J2270; J2405; J7030

== ENCOUNTER 2019-08-01 07:12 | Emergency (ER) | payer OTHER ==
[2019-08-01] MEDS ORDERED: ONDANSETRON HCL INJ/PF 4 MG/2 ML SDV IV ONE (08:07)
[2019-08-01] MEDS ORDERED: NORMAL SALINE 1000 ML 1,000 ML IV ONE (08:07)
[2019-08-01] MEDS ORDERED: MORPHINE SULFATE 10 MG/ML INJ IV ONE ×2 (08:07→08:52)
--- NOTE | 2019-08-01 08:22 | ER Document Report ---
Entered by GENESIS ALVAREZ SCRIBE 08/01/19 0807 Acting as scribe for:CORINNE CASILLAS MD ED GI/ - General Chief Complaint: Flank Pain Stated Complaint: RIGHT FLANK PAIN,BLOOD IN URINE Time Seen by Provider: 08/01/19 07:47 Primary Care Provider: [facility]ADI [Primary Care Provider] - Follow up as needed Mode of Arrival: Ambulatory Information source: Patient Notes: This 29 year old male patient presents to the emergency department today with complaints of right sided flank pain with associated hematuria. Patient has passed kidney stones in the past and his symptoms today are consistent with his previous kidney stones per report. Patient is writhing around the bed in apparent pain. Patient has had one episode of vomiting. Patient denies fevers. TRAVEL OUTSIDE OF THE [place] IN LAST 30 DAYS: No - Related Data Allergies/Adverse Reactions: No Known Allergies Allergy (Verified 10/29/18 06:10) Past Medical History - General Information source: Patient - Social History Smoking Status: Never Smoker Cigarette use (# per day): No Frequency of alcohol use: None Drug Abuse: None Occupation: construction Lives with: Family Family History: Reviewed & Not Pertinent Patient has suicidal ideation: No Patient has homicidal ideation: No Renal/ Medical History: Reports: Hx Kidney Stones. Denies: Hx Peritoneal Dialysis - Immunizations Immunizations up to date: Yes Hx Diphtheria, Pertussis, Tetanus Vaccination: Yes Review of Systems - Review of Systems Constitutional: No symptoms reported EENT: No symptoms reported Cardiovascular: No symptoms reported Respiratory: No symptoms reported Gastrointestinal: See HPI, Abdominal pain, Vomiting Genitourinary: See HPI, Flank pain - right, Hematuria Male Genitourinary: denies: Testicular pain Musculoskeletal: No symptoms reported Skin: No symptoms reported Hematologic/Lymphatic: No symptoms reported Neurological/Psychological: No symptoms reported -: Yes All other systems reviewed and negative Physical Exam - Vital signs Vitals: Temp Pulse Resp BP Pulse Ox 97.6 F 118 H 22 H 170/110 H 99 08/01/19 07:33 08/01/19 07:33 08/01/19 07:33 08/01/19 07:33 08/01/19 07:33 - Notes Notes: Physical Exam: General: Alert, appears uncomfortable, writhing around the bed in apparent pain. HEENT: Normocephalic. Atraumatic. PERRL. Extraocular movements intact. Oropharynx clear. Neck: Supple. Non-tender. Respiratory: No respiratory distress. Clear and equal breath sounds bilaterally. Cardiovascular: Regular rate and rhythm. Abdominal: Right lower quadrant tenderness with palpation. No distension. Normal Bowel Sounds. Back: Right CVA tenderness with percussion. Extremities: Moves all four extremities. Upper extremities: Normal inspection. Normal ROM. Lower extremities: Normal inspection. No edema. Normal ROM. Neurological: Normal cognition. AAOx4. Normal speech. Psychological: Normal affect. Normal Mood. Skin: Warm. Dry. Normal color. Course - Vital Signs Vital signs: Temp Pulse Resp BP Pulse Ox 97.6 F 118 H 22 H 170/110 H 99 08/01/19 07:33 08/01/19 07:33 08/01/19 07:33 08/01/19 07:33 08/01/19 07:33 - Diagnostic Test Radiology reviewed: Image reviewed, Reports reviewed - Noncontrast CT scan abdomen pelvis shows a 1.7 mm mid right ureteral stone with mild dilatation of the right collecting system. Discharge - Discharge Clinical Impression: Right ureteral stone, Renal colic on right side Condition: Stable Disposition: HOME, SELF-CARE Additional Instructions: Kidney Stone You are passing a kidney stone. These stones are usually due to increased calcium or uric acid concentrations in your urine. Stones within the kidney itself are not painful. The pain occurs as the stone leaves the kidney to pass down the long tube, called the ureter, leading to the bladder. If the stone is small, it will usually pass by itself. Most patients can pass the stone at home. You will usually receive medications for pain, nausea or vomiting, and sometimes a medication to assist in passing the kidney stone. However, if the pain is very severe or if vomiting prevents you from taking oral pain medications, you may need to return for further treatment. Drink three or four quarts of fluids per day. You will be given pain medication (if needed) and urine strainers. Strain all your urine to see if the stone passes. If your doctor has asked you to bring the stone in for analysis, return with the stone once it has passed. Return if pain or vomiting become severe, if you develop a high fever, if you are unable to pass your urine, or if other unusual symptoms occur. Start the Flomax tomorrow. Take ibuprofen 600 mg every 8 hours. Drink plenty of fluids throughout the day in the evening. Take the pain medication as prescribed if needed. Follow-up with [facility] if the stone does not pass in the next few days. RETURN TO THE EMERGENCY ROOM IF ANY NEW OR WORSENING SYMPTOMS. Prescriptions: Tamsulosin HCl [Flomax 0.4 mg Cap.sr] 0.4 mg PO DAILY #7 cap.sr.24h Oxycodone HCl/Acetaminophen [Percocet 5-325 mg Tablet] 1 tab PO ASDIR PRN #15 tablet PRN Reason: Referrals: [facility] [[facility]] - Follow up as needed [facility] [Provider [facility]] - Follow up as needed I personally performed the services described in the documentation, reviewed and edited the documentation which was dictated to the scribe in my presence, and it accurately records my words and actions.
[2019-08-01] MEDS ORDERED: KETOROLAC TROMETHAMINE INJ/PF 30 MG/1 ML SDV IV ONE (08:52)
--- NOTE | 2019-08-01 10:00 | RADIOLOGY REPORT (SQ) ---
EXAM DESCRIPTION: CT ABD/PELVIS NO ORAL OR IV COMPLETED DATE/TIME: 08/01/2019 9:28 am REASON FOR STUDY: Right flank pain, hematuria, PMH kidney stones COMPARISON: Renal ultrasound dated 07/31/2019, prior CT dated 06/06/2018 TECHNIQUE: CT scan of the abdomen and pelvis performed without intravenous or oral contrast. Images reviewed with lung, soft tissue, and bone windows. Reconstructed coronal and sagittal MPR images revi ewed. All images stored on PACS. All CT scanners at this facility use dose modulation, iterative reconstruction, and/or weight based d osing when appropriate to reduce radiation dose to as low as reasonably achievable (ALARA). [facility]: Dose Right [facility]: CareDose [facility]: Dose Right [facility]: Teradose 4D [facility]: [employer] RADIATION DOSE: CT Rad equipment meets quality standard of care and radiation dose reduction techniq ues were employed. CTDIvol: 6.1 mGy. DLP: 340 mGy-cm.mGy. LIMITATIONS: None. FINDINGS: LOWER CHEST: No significant findings. No nodules or infiltrates. NON-CONTRASTED LIVER, SPLEEN, ADRENALS: Evaluation limited by lack of IV contrast. No identified sign ificant masses. PANCREAS: No masses. No peripancreatic inflammatory changes. GALLBLADDER: No identified stones by CT criteria. No inflammatory changes to suggest cholecystitis. RIGHT KIDNEY AND URETER: No suspicious masses. Assessment limited by lack of IV contrast. Small non obstructing right renal calculi. There is mild dilatation of right collecting system secondary to 1 .7 mm right mid ureteral stone. LEFT KIDNEY AND URETER: No suspicious masses. Assessment limited by lack of IV contrast. No signifi cant calcifications. No hydronephrosis or hydroureter. AORTA AND RETROPERITONEUM: No aneurysm. No retroperitoneal masses or adenopathy. BOWEL AND PERITONEAL CAVITY: No obvious masses or inflammatory changes. No free fluid. APPENDIX: Normal. PELVIS, BLADDER, AND ABDOMINAL WALL:No abnormal masses. No free fluid. Bladder normal. BONES: No significant findings. OTHER: No other significant finding. IMPRESSION: 1.7 mm right mid ureteral stone with mild dilatation of the right collecting system. Ad ditional nonobstructing stones in the right kidney. COMMENT: Quality ID # [id number]: Final reports with documentation of one or more dose reduction techniques (e.g., Automated exposure control, adjustment of the mA and/or kV according to patient size, use of iterative reconstruction technique) TECHNICAL DOCUMENTATION: JOB ID: [id number] 2010 [employer]- All Rights Reserved Reading location - IP/workstation name: [email or web address]
[2019-08-01] MEDS ORDERED: TAMSULOSIN HCL 0.4 MG CAP.SR.24H PO ONE (10:48)
[2019-08-01 11:10] VITALS: BP 136/88
== END 2019-08-01 11:10 | disposition home or self-care (01) ==
LOC: ER 07:12
DX: N20.2 Calculus of kidney with calculus of ureter (principal); R31.9 Hematuria, unspecified; R11.10 Vomiting, unspecified; R10.9 Unspecified abdominal pain; R10.813 Right lower quadrant abdominal tenderness
CPT/HCPCS: 96376; 99284; 96361; 96374; 96375; 74176; J1885; J2270; J2405; J7030

== ENCOUNTER 2019-10-25 09:07 | Emergency (ER) | payer OTHER ==
[2019-10-25] MEDS ORDERED: TAMSULOSIN HCL 0.4 MG CAP.SR.24H PO ONE (09:29)
[2019-10-25] MEDS ORDERED: ONDANSETRON HCL INJ/PF 4 MG/2 ML SDV IV ONE (09:29)
[2019-10-25] MEDS ORDERED: KETOROLAC TROMETHAMINE INJ/PF 30 MG/1 ML SDV IV ONE (09:29)
--- NOTE | 2019-10-25 09:32 | ER Document Report ---
ED GI/ - General Chief Complaint: Flank Pain Stated Complaint: FLANK PAIN Time Seen by Provider: 10/25/19 09:24 Primary Care Provider: SHADI ZEPEDA [Primary Care Provider] - Follow up as needed Notes: CHIEF COMPLAINT: Right flank pain for 2 days HPI: 29-year-old male with kidney stone history presenting to the emergency department complaining of intermittent right flank pain for the last 2 days with increased nausea with an episode of vomiting today. Has not noticed any darkening of his urine no fever. Patient states last kidney stone was in July of this year, states he has been able to pass all of his kidney stones previously ROS: See HPI - all other systems were reviewed and are otherwise negative Constitutional: no fever Eyes: no drainage, no blurred vision ENT: no runny nose, no sore throat Cardiovascular: no chest pain Resp: no SOB, no cough GI: + Positive vomiting, no diarrhea, positive abdominal pain : no dysuria Integumentary: no rash Allergy: no hives Musculoskeletal: no extremity pain or swelling Neurological: no numbness/tingling, no weakness MEDICATIONS: I agree with the patient medications as charted by the RN. ALLERGIES: I agree with the allergies as charted by the RN. PAST MEDICAL HISTORY/PAST SURGICAL HISTORY: Reviewed and agree as charted by RN. SOCIAL HISTORY: Reviewed and agree as charted by RN. FAMILY HISTORY: No significant familial comorbid conditions directly related to patient complaint EXAM: Reviewed vital signs as charted by RN. CONSTITUTIONAL: Alert and oriented and responds appropriately to questions. Well-appearing; well-nourished HEAD: Normocephalic; atraumatic EYES: PERRL; Conjunctivae clear, sclerae non-icteric ENT: normal nose; no rhinorrhea; moist mucous membranes; pharynx without lesions noted, no uvula edema or deviation, no tonsillar hypertrophy, phonation normal NECK: Supple without meningismus; non-tender; no cervical lymphadenopathy, no masses CARD: RRR; no murmurs, no clicks, no rubs, no gallops; symmetric distal pulses RESP: Normal chest excursion without splinting or tachypnea; breath sounds clear and equal bilaterally; no wheezes, no rhonchi, no rales, pulse oximetry 98% on room air not hypoxic ABD/GI: Normal bowel sounds; non-distended; soft, non-tender, no rebound, no guarding; no palpable organomegaly or masses. BACK: The back appears normal and is non-tender to palpation, there is no CVA tenderness EXT: Normal ROM in all joints; non-tender to palpation; no cyanosis, no effusions, no edema SKIN: Normal color for age and race; warm; dry; good turgor; no acute lesions noted NEURO: Moves all extremities equally; Motor and sensory function intact PSYCH: The patient's mood and manner are appropriate. Grooming and personal hygiene are appropriate. MDM: 29-year-old male with kidney stone history with right flank pain intermittent for 2 days with nausea one episode of vomiting today. No fever. On review of the patient records he was noted to pass a 1.7 mm stone in July and on the CT it does appear there are 2 other very small stones in the kidney he is likely passing 1 of these. Will obtain KUB will not reimage with CT given the size of the stones in the kidney previously it is unlikely he has a large obstructing stone within 2 months. Will reassess patient's pain and nausea TRAVEL OUTSIDE OF THE [place] IN LAST 30 DAYS: No - Related Data Allergies/Adverse Reactions: No Known Allergies Allergy (Verified 10/25/19 09:18) Past Medical History - Social History Smoking Status: Never Smoker Chew tobacco use (# tins/day): No Frequency of alcohol use: None Drug Abuse: None Family History: Reviewed & Not Pertinent Patient has homicidal ideation: No Renal/ Medical History: Reports: Hx Kidney Stones. Denies: Hx Peritoneal Dialysis - Immunizations Immunizations up to date: Yes Hx Diphtheria, Pertussis, Tetanus Vaccination: Yes Physical Exam - Vital signs Vitals: Temp Pulse Resp BP Pulse Ox 97.6 F 59 L 16 136/87 H 97 10/25/19 09:11 10/25/19 09:11 10/25/19 09:11 10/25/19 09:11 10/25/19 09:11 Course - Re-evaluation Re-evalutation: 10/25/19 10:29 Patient shows 7 WBCs in his urine unlikely this is a UTI given that he is likely passing a stone and is afebrile. We will add a urine culture. Patient is more comfortable will discharge on pain medication, urology follow-up - Vital Signs Vital signs: Temp Pulse Resp BP Pulse Ox 97.6 F 59 L 16 136/87 H 97 10/25/19 09:11 10/25/19 09:11 10/25/19 09:11 10/25/19 09:11 10/25/19 09:11 - Laboratory Result Diagrams: 10/25/19 09:26 10/25/19 09:26 Laboratory results interpreted by me: 10/25/19 10/25/19 09:26 09:57 WBC 3.6 L MCH 33.6 H Urine Blood SMALL H Urine Urobilinogen 2.0 H Discharge - Discharge Clinical Impression: Renal colic on right side Condition: Stable Disposition: HOME, SELF-CARE Additional Instructions: 1. return to the ED for any fever, back pain or worsening condition 2. hydrate well at home to flush the system. 3. Percocet for pain, no driving if taking Percocet for pain 4. follow up with Urology for further evaluation and treatment Prescriptions: Tamsulosin HCl [Flomax 0.4 mg Cap.sr] 0.4 mg PO DAILY #7 cap.sr.24h Oxycodone HCl/Acetaminophen [Percocet 5-325 mg Tablet] 1 tab PO Q4H PRN #15 tab PRN Reason: Ondansetron [Zofran Odt 4 mg Tablet] 1 - 2 tab PO Q4H PRN #15 tab.rapdis PRN Reason: For Nausea/Vomiting Referrals: [facility] [Primary Care Provider] - Follow up as needed KAROL VEGA MD [NO LOCAL MD] - Follow up as needed
[2019-10-25 09:42] LABS: ABSOLUTE LYMPHOCYTES (AUTO) 1.5 10^3/uL (0.5-4.7); ABSOLUTE MONOCYTES (AUTO) 0.3 10^3/uL (0.1-1.4); ABSOLUTE NEUT (AUTO) 1.8 10^3/uL (1.7-8.2); BASOPHILS % (AUTO) 0.4 % (0-2); EOSINOPHILS % (AUTO) 0.5 % (0-6); HEMATOCRIT 46.8 % (37.9-51.0); HEMOGLOBIN 16.5 g/dL (13.5-17.0); LYMPHOCYTES % (AUTO) 42.7 % (13-45); MEAN CORPUSCULAR HEMOGLOBIN 33.6 pg (27.0-33.4); MEAN CORPUSCULAR HGB CONC 35.2 g/dL (32.0-36.0); MEAN CORPUSCULAR VOLUME 95 fl (80-97); MONOCYTES % (AUTO) 7.5 % (3-13); PLATELET COUNT 253 10^3/uL (150-450); RED BLOOD COUNT 4.91 10^6/uL (4.35-5.55); SEGMENTED NEUTROPHILS % (AUTO) 48.9 % (42-78); TOTAL CELLS COUNTED % (AUTO) 100 %; WHITE BLOOD COUNT 3.6 10^3/uL (4.0-10.5)
--- NOTE | 2019-10-25 09:47 | RADIOLOGY REPORT (SQ) ---
EXAM DESCRIPTION: KUB/ABDOMEN (SINGLE VIEW) IMAGES COMPLETED DATE/TIME: 10/25/2019 9:38 am REASON FOR STUDY: right flank pain kidney stone hx COMPARISON: None. NUMBER OF VIEWS: One view. TECHNIQUE: Supine radiographic image of the abdomen acquired. LIMITATIONS: None. FINDINGS: BOWEL GAS PATTERN: No dilated loops of bowel. CALCIFICATIONS: None. SOFT TISSUES: No abnormality. HARDWARE: None in the abdomen. BONES: Transitional L5 segment. There is no acute fracture. OTHER: No other finding. IMPRESSION: Nonobstructive bowel gas pattern. TECHNICAL DOCUMENTATION: JOB ID: [id number] [employer]- All Rights Reserved Reading location - IP/workstation name: [email or web address]
[2019-10-25] MEDS ORDERED: OXYCODONE-ACETAMINOPHEN 5-325 MG TABLET PO ONE (10:05)
[2019-10-25 10:13] LABS: ALBUMIN 4.6 g/dL (3.5-5.0); ALKALINE PHOSPHATASE 67 U/L (38-126); ANION GAP 6 (5-19); ASPARTATE AMINO TRANSFERASE 37 U/L (17-59); BILIRUBIN,TOTAL 1.1 mg/dL (0.2-1.3); BLOOD UREA NITROGEN 16 mg/dL (7-20); CALCIUM 9.5 mg/dL (8.4-10.2); CARBON DIOXIDE 25 mmol/L (22-30); CHLORIDE 107 mmol/L (98-107); GLUCOSE 89 mg/dL (75-110); POTASSIUM 4.5 mmol/L (3.6-5.0); TOTAL PROTEIN 7.9 g/dL (6.3-8.2)
[2019-10-25 10:23] LABS: APPEARANCE,URINE SLIGHTLY-CLOUDY; BILIRUBIN,URINE NEGATIVE (NEGATIVE); COLOR,URINE YELLOW; GLUCOSE, URINE NEGATIVE (NEGATIVE); KETONES,URINE NEGATIVE (NEGATIVE); LEUKOCYTE ESTERASE,URINE NEGATIVE (NEGATIVE); NITRITE,URINE NEGATIVE (NEGATIVE); PROTEIN,URINE NEGATIVE (NEGATIVE); URINE SPECIFIC GRAVITY 1.021
[2019-10-25 10:54] VITALS: BP 135/80
== END 2019-10-25 10:50 | disposition home or self-care (01) ==
LOC: ER 09:07
DX: N23 Unspecified renal colic (principal); R10.9 Unspecified abdominal pain; R11.2 Nausea with vomiting, unspecified; Z87.442 Personal history of urinary calculi
CPT/HCPCS: 99284; 96374; 96375; 36415; 87086; 85025; 80053; 81001; 74018; J1885; J2405

== ENCOUNTER 2019-11-13 01:36 | Emergency (ER) | payer OTHER ==
[2019-11-13] MEDS ORDERED: ACETAMINOPHEN 325 MG TABLET PO ONE (02:27)
[2019-11-13 02:47] LABS: APPEARANCE,URINE CLEAR; BILIRUBIN,URINE NEGATIVE (NEGATIVE); COLOR,URINE YELLOW; GLUCOSE, URINE NEGATIVE (NEGATIVE); KETONES,URINE NEGATIVE (NEGATIVE); LEUKOCYTE ESTERASE,URINE NEGATIVE (NEGATIVE); NITRITE,URINE NEGATIVE (NEGATIVE); PROTEIN,URINE NEGATIVE (NEGATIVE); URINE SPECIFIC GRAVITY 1.014; UROBILINOGEN,URINE NEGATIVE mg/dL (<2.0)
[2019-11-13 02:56] LABS: ABSOLUTE LYMPHOCYTES (AUTO) 0.8 10^3/uL (0.5-4.7); ABSOLUTE MONOCYTES (AUTO) 0.8 10^3/uL (0.1-1.4); ABSOLUTE NEUT (AUTO) 3.9 10^3/uL (1.7-8.2); BASOPHILS % (AUTO) 0.4 % (0-2); EOSINOPHILS % (AUTO) 0.1 % (0-6); HEMOGLOBIN 15.2 g/dL (13.5-17.0); LYMPHOCYTES % (AUTO) 14.1 % (13-45); MEAN CORPUSCULAR HEMOGLOBIN 33.6 pg (27.0-33.4); MEAN CORPUSCULAR HGB CONC 35.5 g/dL (32.0-36.0); MEAN CORPUSCULAR VOLUME 95 fl (80-97); MONOCYTES % (AUTO) 14.5 % (3-13); PLATELET COUNT 234 10^3/uL (150-450); RED BLOOD COUNT 4.54 10^6/uL (4.35-5.55); RED CELL DISTRIBUTION WIDTH 13.9 % (11.5-14.0); SEGMENTED NEUTROPHILS % (AUTO) 70.9 % (42-78); TOTAL CELLS COUNTED % (AUTO) 100 %; WHITE BLOOD COUNT 5.5 10^3/uL (4.0-10.5)
[2019-11-13 03:14] LABS: ALBUMIN 4.3 g/dL (3.5-5.0); ALKALINE PHOSPHATASE 76 U/L (38-126); ANION GAP 7 (5-19); ASPARTATE AMINO TRANSFERASE 29 U/L (17-59); BILIRUBIN,TOTAL 0.4 mg/dL (0.2-1.3); BLOOD UREA NITROGEN 13 mg/dL (7-20); CALCIUM 9.2 mg/dL (8.4-10.2); CARBON DIOXIDE 25 mmol/L (22-30); CHLORIDE 107 mmol/L (98-107); GLUCOSE 100 mg/dL (75-110); POTASSIUM 4.1 mmol/L (3.6-5.0); TOTAL PROTEIN 7.6 g/dL (6.3-8.2)
[2019-11-13] MEDS ORDERED: MORPHINE SULFATE 10 MG/ML INJ IV ONE (03:56)
[2019-11-13] MEDS ORDERED: KETOROLAC TROMETHAMINE INJ/PF 30 MG/1 ML SDV IV ONE (03:56)
[2019-11-13] MEDS ORDERED: ONDANSETRON HCL INJ/PF 4 MG/2 ML SDV IV ONE (03:56)
[2019-11-13] MEDS ORDERED: NORMAL SALINE 1000 ML 1,000 ML IV ONE (03:57)
--- NOTE | 2019-11-13 04:39 | RADIOLOGY REPORT (SQ) ---
CT ABDOMEN AND PELVIS WITH INTRAVENOUS CONTRAST: 11/13/2019 3:34 AM CDT HISTORY: 29-year old with right side abdominal pain. COMPARISON: CT of abdomen and pelvis from 08/01/2019 TECHNIQUE: Axial contiguous images were obtained from the lung bases to the proximal femurs with intravenous intravenous contrast administered. Sagittal and coronal reconstructions were also obtained and reviewed. This exam was performed according to our departmental dose-optimization program, which includes automated exposure control, adjustment of the mA and/or KV according to the patient's size and/or use of iterative reconstruction technique. FINDINGS: No focal consolidative airspace opacities are seen. No discrete pleural effusion is seen. The visualized hepatic parenchyma is unremarkable. No focal enhancing lesion is seen. The gallbladder demonstrates no evidence of calcified gallstones. The spleen and pancreas are normal in contour. The bilateral adrenal glands appear unremarkable. Both kidneys demonstrate no evidence of hydronephrosis. The urinary bladder is mildly distended, and appears grossly unremarkable. There is a calcified phleboliths within the lower right pelvis, separate from the ureter. No focal obvious filling defect is seen within the visualized ureters or collecting systems. The stomach is not well distended. The small bowel loops appear unremarkable. No pericolonic inflammatory stranding is seen. The appendix appears unremarkable. There is no evidence of pneumoperitoneum or free fluid. The aorta and IVC appear normal in size. No significantly enlarged lymph nodes are seen in the abdomen or pelvis. Review of the bone show no evidence of any suspicious lytic or blastic lesions. There is a prominent disc osteophyte seen at L4/L5. IMPRESSION: No acute process is seen within the abdomen or pelvis.
--- NOTE | 2019-11-13 04:59 | ER Document Report ---
ED GI/ - General Chief Complaint: Flank Pain Stated Complaint: FLANK PAIN Time Seen by Provider: 11/13/19 03:47 Primary Care Provider: SHADI ZEPEDA [Primary Care Provider] - Follow up as needed Notes: Patient is a 29-year-old male that comes emergency department for chief complaint of abdominal and flank pain. Pain is mainly on the right side of the abdomen. He states that 3 days he gets intermittent waves of pain, he noticed this more last night so he came in for evaluation. He states he also developed a headache but this was mild. He denies neck stiffness, shortness of breath, cough, sore throat, nausea, vomiting, dysuria, discharge from the penis, or any other complaints. He has a history of kidney stones and has passed multiple ones previously. He denies any surgeries, daily medications, and denies history of drug abuse. TRAVEL OUTSIDE OF THE [place] IN LAST 30 DAYS: No - Related Data Allergies/Adverse Reactions: No Known Allergies Allergy (Verified 10/25/19 09:18) Past Medical History - General Information source: Patient - Social History Smoking Status: Never Smoker Frequency of alcohol use: None Drug Abuse: None Lives with: Family Family History: Reviewed & Not Pertinent Renal/ Medical History: Reports: Hx Kidney Stones. Denies: Hx Peritoneal Dialysis - Immunizations Immunizations up to date: Yes Hx Diphtheria, Pertussis, Tetanus Vaccination: Yes Review of Systems - Review of Systems Constitutional: See HPI EENT: No symptoms reported Cardiovascular: No symptoms reported Respiratory: No symptoms reported Gastrointestinal: See HPI Genitourinary: See HPI Male Genitourinary: No symptoms reported Musculoskeletal: No symptoms reported Skin: No symptoms reported Hematologic/Lymphatic: No symptoms reported Neurological/Psychological: No symptoms reported Physical Exam - Vital signs Vitals: Temp Pulse Resp BP Pulse Ox 102.0 F H 66 20 139/81 H 100 11/13/19 01:49 11/13/19 01:49 11/13/19 01:49 11/13/19 01:49 11/13/19 01:49 - Notes Notes: GENERAL: Alert, interacts well. No acute distress. HEAD: Normocephalic, atraumatic. EYES: Pupils equal, round, and reactive to light. Extraocular movements intact. ENT: Oral mucosa moist, tongue midline. Oropharynx unremarkable. Airway patent. LUNGS: Clear to auscultation bilaterally, no wheezes, rales, or rhonchi. No respiratory distress. Non-tender chest wall. HEART: Regular rate and rhythm. No murmur ABDOMEN: There is very minimal generalized tenderness of the abdomen, nonspecific, no guarding, no specific McBurney's point tenderness, no rigidity, distention, or rebound tenderness. GENITOURINARY: Deferred EXTREMITIES: Moves all 4 extremities spontaneously. No edema, normal radial and dorsalis pedis pulses bilaterally. No cyanosis. BACK: No CVA tenderness. No cervical, thoracic, lumbar midline tenderness. No saddle anesthesia, normal distal neurovascular exam. Moves all extremities in full range of motion. NEUROLOGICAL: Alert and oriented x3. Normal speech. Cranial nerves II through XII grossly intact. Strength 5/5 in all extremities. PSYCH: Normal affect, normal mood. SKIN: Warm, dry, normal turgor. No rashes or lesions noted. Course - Re-evaluation Re-evalutation: Patient is febrile, he is not tachycardic, he is not hypotensive. He is actually very well-appearing. His abdomen is actually quite benign, he has no CVA tenderness. I did review work-up from triage including CBC, chemistry, urinalysis. This shows mild hematuria, no leukocytosis, no infection in the urine. I did obtain blood cultures and urine cultures. CT was also reviewed and this shows no acute process including no obstructing stone, visualized appendix is normal, no noted cholecystitis. Reevaluation of patient's abdomen is completely benign. Patient has no complaints on reevaluation. The patient is very well-appearing. Overall I suspect this is viral and a recently passed kidney stone because of his hematuria, fever, and no other concerning findings. He has no headache, no nuchal rigidity, unremarkable oropharyngeal exam, unremarkable skin exam. I did offer COVID-19 testing and recommended this but patient declined. Discussed quarantine at home, discussed return precautions for any signs of developing acute abdomen. Patient states understanding and agreement. Patient actually came back in after discharge and stated that he change his mind and wanted COVID-19 testing, this was performed. - Vital Signs Vital signs: Temp Pulse Resp BP Pulse Ox 99.0 F 65 16 130/80 H 100 11/13/19 05:30 11/13/19 05:30 11/13/19 05:30 11/13/19 05:30 11/13/19 05:30 - Laboratory Result Diagrams: 11/13/19 02:47 11/13/19 02:47 Laboratory results interpreted by me: 11/13/19 11/13/19 02:25 02:47 MCH 33.6 H [place] % (Auto) 14.5 H Urine Blood MODERATE H Discharge - Discharge Clinical Impression: Abdominal pain Qualifiers: Abdominal location: generalized Qualified Code(s): R10.84 - Generalized abdominal pain Hematuria Qualifiers: Hematuria type: other microscopic Qualified Code(s): R31.29 - Other microscopic hematuria Fever Qualifiers: Fever type: unspecified Qualified Code(s): R50.9 - Fever, unspecified Condition: Stable Disposition: HOME, SELF-CARE Instructions: Oral Narcotic Medication ([facility]) Additional Instructions: You do have some blood in your urine which suggest that you have recently passed a kidney stone, no stone or concerning finding is seen on the scan, your work-up otherwise does not show any concerning findings. My overall impression is that you have recently passed a stone and that you have a viral illness causing the fever. If this is the case your symptoms should simply resolve with time. You can take 600 mg of ibuprofen and 1000 mg of Tylenol every 6 hours for pain and fever. Drink plenty of fluids and rest. However if you develop returned or severe worsening pain, vomiting, spiking fevers, difficulty breathing, or any other concerning or worsening symptoms please return to the emergency department. Referrals: [facility] [Primary Care Provider] - Follow up as needed
[2019-11-13] MEDS ORDERED: ONDANSETRON ODT 4 MG TAB (6 TAB/ER DISP) PO PRN (05:10)
[2019-11-13] MEDS ORDERED: HYDROCODONE/ACETAMINOPHEN 5-325 MG (6 TAB/ER DISP) PO PRN (05:10)
[2019-11-13 05:31] VITALS: BP 130/80
== END 2019-11-13 05:31 | disposition home or self-care (01) ==
LOC: ER 01:36
DX: U07.1 COVID-19 (principal); R10.84 Generalized abdominal pain; R31.29 Other microscopic hematuria; R50.9 Fever, unspecified; Z20.828 Contact with and (suspected) exposure to other viral communicable diseases; Z87.442 Personal history of urinary calculi
CPT/HCPCS: 99284; 96361; 96374; 96375; 36415; 87040; 87086; 83690; 85025; 87635; 80053; 81001; 74177; J1885; J2270; J2405; J7030; C9803